=== PATIENT | female | born 1975 | race Caucasian/White ===

== ENCOUNTER 2024-09-18 23:18 | Emergency (ER) | payer OTHER ==
[2024-09-18 23:35] LABS: BASOPHILS ABSOLUTE AUTO 0.05 K/uL (0.00-0.10); BASOPHILS PERCENT AUTO 0.5 % (0.1-1.3); EOSINOPHILS ABSOLUTE AUTO 0.22 K/uL (0.00-0.40); EOSINOPHILS PERCENT AUTO 2.3 % (0.0-5.4); HEMATOCRIT 44.9 % (34.3-46.0); HEMOGLOBIN 15.6 g/dL (11.2-15.5); IMMATURE GRAN PERCENT AUTO 0.2 % (0.0-0.7); LYMPHOCYTES ABSOLUTE AUTO 2.17 K/uL (0.8-3.3); LYMPHOCYTES PERCENT AUTO 22.4 % (11.4-47.7); MEAN CORPUSCULAR HEMOGLOBIN 33.6 pg (31.6-35.5); MEAN CORPUSCULAR HGB CONC 34.7 g/dL (31.6-35.5); MEAN CORPUSCULAR VOLUME 96.8 fL (81.4-99.0); MONOCYTES ABSOLUTE AUTO 0.69 K/uL (0.20-0.90); MONOCYTES PERCENT AUTO 7.1 % (3.3-12.6); NEUTROPHILS ABSOLUTE AUTO 6.53 K/uL (1.0-7.6); NEUTROPHILS PERCENT AUTO 67.5 % (40.0-78.1); PLATELET COUNT,PLT 322 K/uL (130-375); RED BLOOD CELL COUNT 4.64 M/uL (3.77-5.24); WHITE BLOOD CELL COUNT,WBC 9.7 K/uL (3.2-11.0)
[2024-09-18 23:37] LABS: IMMATURE GRAN ABSOLUTE AUTO 0.02 K/uL (0.00-0.23)
[2024-09-18] MEDS: diphenhydrAMINE 50 MG/ML SDV IVPUSH ONE (23:38)
[2024-09-18] MEDS: Sodium Chloride 0.9% 1,000 ML IV SCH (23:42)
[2024-09-18] MEDS: droPERidol 5 MG/2 ML SDV IM ONE (23:44)
[2024-09-18] MEDS: droPERidol 5 MG/2 ML SDV IVPUSH ONE (23:45)
[2024-09-18 23:53] LABS: APPEARANCE,URINE SLIGHTLY CLOUDY (CLEAR); BILIRUBIN,URINE NEGATIVE (NEGATIVE); COLOR,URINE YELLOW (YELLOW); GLUCOSE,URINE NEGATIVE (NEGATIVE); KETONES,URINE NEGATIVE (NEGATIVE); LEUKOCYTE ESTERASE,URINE NEGATIVE (NEGATIVE); NITRITE,URINE NEGATIVE (NEGATIVE); OCCULT BLOOD,URINE SMALL (NEGATIVE); PH,URINE 5.5 (5.0-8.0); PROTEIN,URINE NEGATIVE (NEGATIVE); UROBILINOGEN,URINE 0.2 EU/dL (0.2-1.0)
[2024-09-18 23:57] LABS: ALANINE AMINOTRANSFERASE,ALT 24 U/L (12-78); ALBUMIN 3.6 g/dL (3.4-5.0); ALKALINE PHOSPHATASE 74 U/L (46-116); ASPARTATE AMNIOTRANSFERASE,AST 25 U/L (15-37); BILIRUBIN TOTAL 0.4 mg/dL (0.2-1.0); BLOOD UREA NITROGEN,BUN 5 mg/dL (7-18); CALCIUM 9.2 mg/dL (8.5-10.1); CARBON DIOXIDE,CO2 18 mmol/L (21-32); CHLORIDE,CL 92 mmol/L (100-108); CREATININE 0.6 mg/dL (0.6-1.0); ESTIMATED GFR 109 mL/min (>60); GLUCOSE RANDOM 85 mg/dL (74-106); POTASSIUM,K 3.8 mmol/L (3.6-5.2); PROTEIN TOTAL,TP 7.2 g/dL (6.4-8.2); SODIUM,NA 126 mmol/L (140-148)
[2024-09-18 23:59] LABS: AMORPHOUS SEDIMENT,URINE NOT SEEN; BACTERIA,URINE MODERATE; EPITHELIAL CELLS,URINE RARE; MUCUS,URINE RARE; RBC,URINE 0-5 (0-5); WBC,URINE 0-5 (0-5)
[2024-09-19] LABS: ANION GAP 19.8 mmol/L (5.0-14.0)
== END 2024-09-19 00:48 | disposition home or self-care (01) ==
LOC: JP.ED 23:18
DX: R10.12 Left upper quadrant pain (principal); F17.200 Nicotine dependence, unspecified, uncomplicated; Z88.2 Allergy status to sulfonamides; Z88.5 Allergy status to narcotic agent; Z79.899 Other long term (current) drug therapy
CPT/HCPCS: 36415; 80053; 81001; 85025; 96361; 96374; 96375; 99284; J1200; J1790; J7030